=== PATIENT | female | born 1995 | race Hispanic/Latino ===

== ENCOUNTER 2017-12-19 09:09 | Inpatient (IN) | payer OTHER ==
[2017-12-19 09:23] VITALS: BMI 20.7
[2017-12-19] MEDS ORDERED: Morphine 2 mg/ml ISec IVP STA (09:46)
[2017-12-19] MEDS ORDERED: Iohexol 240 (50 ml) ONE (09:48)
--- NOTE | 2017-12-19 10:56 | ED PDOC ---
Arrival/HPI - General Chief Complaint: GI Problem Time Seen by Provider: 12/19/17 09:37 Historian: Patient, Partner - History of Present Illness Narrative History of Present Illness (Text): 12/19/17 09:40 A 22 year old female, whose past medical history includes ulcer colitis, hemorrhoids, and anemia, presents to the emergency department complaining of intermittent abdominal pain and bloody stool. Patient reports experiencing symptoms for few weeks. States stools are sometimes completely bloody, sometimes normal. Patient mentions experiencing fever few weeks ago prior to symptoms. Notes also experiencing dizziness, lightheadedness, nausea, lower abdominal pain, shortness of breath (mostly when walking), and bad odor to urine. Denies any vomiting, rhinorrhea, cough, or any other complaints at this time. PMD: Dr. Freeman GI: Dr. Juares Past Medical History - Provider Review Nursing Documentation Reviewed: Yes - Cardiac Hx Cardiac Disorders: No - Pulmonary Hx Respiratory Disorders: No - Neurological Hx Neurological Disorder: No - HEENT Hx HEENT Disorder: No - Renal Hx Renal Disorder: No - Endocrine/Metabolic Hx Endocrine Disorders: No - Hematological/Oncological Hx Blood Disorders: Yes Hx Anemia: Yes - Integumentary Hx Dermatological Disorder: No - Musculoskeletal/Rheumatological Hx Musculoskeletal Disorders: No - Gastrointestinal Hx Gastrointestinal Disorders: Yes Hx Colitis: Yes - Genitourinary/Gynecological Hx Genitourinary Disorders: No - Psychiatric Hx Psychophysiologic Disorder: No Hx Substance Use: No Family/Social History - Physician Review Nursing Documentation Reviewed: Yes Family/Social History: No Known Family HX Smoking Status: Never Smoked Hx Alcohol Use: Yes Frequency of alcohol use: Socially Hx Substance Use: No Allergies/Home Meds Allergies/Adverse Reactions: Allergies codeine Adverse Reaction (Verified 12/19/17 17:07) VOMITING Home Medications: Home Meds Medication Instructions Recorded Confirmed No Known Home Med 12/19/17 12/19/17 Review of Systems - Physician Review All systems were reviewed & negative as marked: Yes - Review of Systems ENT: absent: Rhinorrhea Respiratory: SOB (mostly when walking). absent: Cough Gastrointestinal: Abdominal Pain (intermittently), Stool Changes (bloody stool ( sometimes)), Nausea. absent: Vomiting Genitourinary Female: Other (bad odor to urine) Neurological: Dizziness Physical Exam Vital Signs Reviewed: Yes Vital Signs Temp Pulse Resp BP Pulse Ox 12/19/17 16:02 70 17 127/65 99 12/19/17 13:40 74 18 128/64 100 12/19/17 12:37 75 18 132/65 100 12/19/17 11:00 78 18 134/69 100 12/19/17 10:35 93 H 17 118/62 99 12/19/17 09:21 98.4 F 81 16 136/71 100 Temperature: Afebrile Blood Pressure: Normal Pulse: Regular Respiratory Rate: Normal Appearance: Positive for: Well-Appearing Pain Distress: None Mental Status: Positive for: Alert and Oriented X 3 - Systems Exam Head: Present: Atraumatic, Normocephalic Pupils: Present: PERRL Extroacular Muscles: Present: EOMI Conjunctiva: Present: Normal Mouth: Present: Moist Mucous Membranes Neck: Present: Normal Range of Motion Respiratory/Chest: Present: Clear to Auscultation, Good Air Exchange. No: Respiratory Distress, Accessory Muscle Use Cardiovascular: Present: Regular Rate and Rhythm, Normal S1, S2. No: Murmurs Abdomen: Present: Tenderness (left side of abdomen, more so upper than lower region) Rectal: Present: Hemorrhoids (external non-thrombus hemorrhoid), Other (brown stool, guaiac positive. Chaperoned by hBarat Wen.) Back: Present: Normal Inspection Upper Extremity: Present: Normal Inspection. No: Cyanosis, Edema Lower Extremity: Present: Normal Inspection. No: Edema Neurological: Present: GCS=15, CN II-XII Intact, Speech Normal Skin: Present: Pale Psychiatric: Present: Alert, Oriented x 3, Normal Insight, Normal Concentration Medical Decision Making ED Course and Treatment: 12/19/17 09:45 Impression: 22 year old female with intermittent abdominal pain and bloody stool. Physical exam shows tenderness to left abdomen (more so on upper than lower region); rectal exam, chaperoned by Bharat Wen, shows guaiac positive, brown stool, external non-thrombus hemorrhoid.. Differential Diagnosis included but are not limited to: Ulcer Colitis Exacerbation vs. Abscess Plan: -- Abd/Pelvis CT -- Labs -- Morphine -- Zofran -- Protonix -- Urinalysis -- Reassess and disposition Progress Notes: 12/19/2017 12:28 Abd/Pelvis CT IMPRESSION: Bilateral ovarian cysts are seen. There is a thick-walled enhancing rim on the the left which may represent a recent cyst rupture. There is minimal fluid in the cul-de-sac. Dictator: Avtar Kaye MD 12/19/17 14:[address] Joy and patient's GI doctor, Dr. Juares, who recommends patient be admitted for colonoscopy tomorrow. - Lab Interpretations Lab Results: 12/19/17 11:05 12/19/17 11:05 Lab Results 12/19/17 12:45: Blood Type Confirm A POSITIVE 12/19/17 11:05: Sodium 140, Potassium 4.2, Chloride 103, Carbon Dioxide 23, Anion Gap 18, BUN 13, Creatinine 0.7, Est GFR ( Amer) > 60, Est GFR (Non- Af Amer) > 60, Random Glucose 87, Calcium 9.6, Total Bilirubin 0.8, AST 24, ALT 32, Alkaline Phosphatase 96, Lactate Dehydrogenase 422, Total Creatine Kinase 56 , Troponin I < 0.01, Total Protein 8.3, Albumin 4.5, Globulin 3.8, Albumin/ Globulin Ratio 1.2, Lipase 113 12/19/17 11:05: Urine Color Yellow, Urine Appearance Clear, Urine pH 6.5, Ur Specific [place] 1.010, Urine Protein Negative, Urine Glucose (UA) Negative, Urine Ketones Negative, Urine Blood Negative, Urine Nitrate Negative, Urine Bilirubin Negative, Urine Urobilinogen 0.2, Ur Leukocyte Esterase Negative 12/19/17 11:05: PT 12.0, INR 1.04, APTT 22.7 L 12/19/17 11:05: WBC 7.7, RBC 4.43, Hgb 13.0, Hct 39.8, MCV 89.8, MCH 29.3, MCHC 32.7, RDW 12.3, Plt Count 354, MPV 8.9, Gran % 55.9, Lymph % (Auto) 24.5, [place] % (Auto) 11.3 H, Eos % (Auto) 7.5 H, Baso % (Auto) 0.8, Gran # 4.33, Lymph # ( Auto) 1.9, [place] # (Auto) 0.9 H, Eos # (Auto) 0.6, Baso # (Auto) 0.06 12/19/17 10:50: Blood Type A POSITIVE, Antibody Screen Negative, BBK History Checked No verified bt I have reviewed the lab results: Yes - RAD Interpretation Radiology Orders: 12/19/17 09:45 ABD PELVIS PO & IV CONTRAST [CT] Stat - Medication Orders Current Medication Orders: Sodium Chloride (Sodium Chloride 0.9%) 1,000 mls @ 150 mls/hr IV .Q6H40M [facility] Last Admin: 12/19/17 17:13 Dose: 150 mls/hr eMAR Start Stop Document 12/19/17 17:13 EP (Rec: 12/19/17 17:14 EP [id number] Intravenous Solution Start Date 12/19/17 Start Time 17:13 Metronidazole (Flagyl) 500 mg in 100 mls @ 100 mls/hr IVPB Q8 [facility]ANNE PRN Reason: Protocol Ceftriaxone Sodium (Rocephin 1 Gram Ivpb) 1 gm in 100 mls @ 100 mls/hr IVPB DAILY [facility] PRN Reason: Protocol Last Admin: 12/20/17 10:41 Dose: 100 mls/hr eMAR Start Stop Document 12/20/17 10:41 CV (Rec: 12/20/17 10:41 CV [id number] Intravenous Solution Start Date 12/20/17 Start Time 10:41 Sodium Chloride (Sodium Chloride 0.9%) 1,000 mls @ 100 mls/hr IV .Q10H [facility] Mesalamine (Rowasa Enema) 4 gm RC BID [facility] Mesalamine (Asacol Hd 800mg) 1,600 mg PO TID [facility] Ondansetron HCl (Zofran Inj) 4 mg IVP Q4H PRN PRN Reason: Nausea/Vomiting Pantoprazole Sodium (Protonix Inj) 40 mg IVP DAILY [facility] Last Admin: 12/20/17 10:42 Dose: 40 mg IVP Administration Document 12/20/17 10:42 CV (Rec: 12/20/17 10:42 CV [facility] [id number] Charges for Administration # of IVP Administrations 1 Discontinued Medications Hydromorphone HCl (Dilaudid) 0.5 mg IVP Q4H PRN PRN Reason: Pain, Mild (1-3) Morphine Sulfate (Morphine) 2 mg IVP STAT STA Stop: 12/19/17 09:47 Last Admin: 12/19/17 10:40 Dose: 2 mg MAR Pain Assessment Document 12/19/17 10:40 SF (Rec: 12/19/17 10:51 SF [email or web address]) Pain Reassessment Is this a pain reassessment? Yes Sleep Is patient sleeping during reassessment? No IVP Administration Document 12/19/17 10:40 SF (Rec: 12/19/17 10:51 SF [email or web address]) Charges for Administration # of IVP Administrations 1 Ondansetron HCl (Zofran Inj) 4 mg IVP STAT STA Stop: 12/19/17 09:45 Last Admin: 12/19/17 10:40 Dose: 4 mg IVP Administration Document 12/19/17 10:40 SF (Rec: 12/19/17 10:51 SF [email or web address]) Charges for Administration # of IVP Administrations 1 Pantoprazole Sodium (Protonix Inj) 80 mg IVP STAT STA Stop: 12/19/17 09:47 Last Admin: 12/19/17 10:40 Dose: 80 mg IVP Administration Document 12/19/17 10:40 SF (Rec: 12/19/17 10:52 SF [email or web address]) Charges for Administration # of IVP Administrations 1 Pneumococcal Polyvalent Vaccine (Pneumovax 23 Vaccine) 0.5 ml IM .ONCE ONE Stop: 12/19/17 18:26 Polyethylene Glycol/Electrolytes (Golytely) 4,000 ml PO ONCE ONE Stop: 12/19/17 16:18 Last Admin: 12/19/17 17:14 Dose: 4,000 ml - Scribe Statement The provider has reviewed the documentation as recorded by the Bharat Lopez Provider Scribe Attestation: All medical record entries made by the Jaclynibmisti were at my direction and personally dictated by me. I have reviewed the chart and agree that the record accurately reflects my personal performance of the history, physical exam, medical decision making, and the department course for this patient. I have also personally directed, reviewed, and agree with the discharge instructions and disposition. Disposition/Present on Arrival - Present on Arrival Any Indicators Present on Arrival: No History of DVT/PE: No History of Uncontrolled Diabetes: No Urinary Catheter: No History of Decub. Ulcer: No History Surgical Site Infection Following: None - Disposition Have Diagnosis and Disposition been Completed?: Yes Diagnosis: Ulcerative colitis Disposition: HOSPITALIZED Disposition Time: 14:32 Patient Plan: Admission Condition: FAIR
[2017-12-19 11:21] LABS: BASO # 0.06 K/mm3 (0.0-2.0); BASO % 0.8 % (0.0-3.0); EOS # 0.6 (0.0-0.7); EOS % 7.5 % (1.5-5.0); GRAN # 4.33 (1.4-6.5); GRAN % 55.9 % (50.0-68.0); LYMPH # 1.9 (1.2-3.4); LYMPH % 24.5 % (22.0-35.0); MEAN CELL VOLUME 89.8 fl (80.0-105.0); MEAN CORPUSCULAR HEMOGLOBIN 29.3 pg (25.0-35.0); MEAN CORPUSCULAR HGB CONC 32.7 g/dl (31.0-37.0); MEAN PLATELET VOLUME 8.9 fl (7.0-11.0); MONO # 0.9 (0.1-0.6); MONO % 11.3 % (1.0-6.0); RBC 4.43 10^6/uL (3.5-6.1); RED CELL DISTRIBUTION WIDTH 12.3 % (11.5-14.5); WHITE BLOOD COUNT 7.7 10^3/ul (4.5-11.0)
[2017-12-19 11:25] LABS: PH,URINE 6.5 (4.7-8.0); URINE BILIRUBIN NEGATIVE (NEGATIVE); URINE BLOOD NEGATIVE (NEGATIVE); URINE GLUCOSE (UA) NEGATIVE (NEGATIVE); URINE LEUKOCYTE ESTERASE NEGATIVE Leu/uL (NEGATIVE); URINE NITRATE NEGATIVE (NEGATIVE); URINE PROTEIN NEGATIVE mg/dL (<30 mg/dL); URINE UROBILINOGEN 0.2 E.U./dL (<1 E.U./dL)
[2017-12-19 11:26] LABS: URINE APPEARANCE CLEAR (CLEAR); URINE COLOR YELLOW (YELLOW)
[2017-12-19 11:35] LABS: ALB/GLOB RATIO 1.2 (1.1-1.8); ALBUMIN 4.5 g/dL (3.0-4.8); ALT/SGPT 32 U/L (7-56); AST/SGOT 24 U/L (14-36); BLOOD UREA NITROGEN 13 mg/dL (7-21); CALCIUM 9.6 mg/dL (8.4-10.5); GFR AFRICAN-AMERICAN > 60; GFR NON-AFRICAN AMERICAN > 60; INR 1.04 (0.93-1.08); LIPASE 113 U/L (23-300); PARTIAL THROMBOPLASTIN TIME 22.7 Seconds (25.1-36.5)
[2017-12-19 11:46] LABS: TROPONIN I < 0.01 ng/mL
[2017-12-19] MEDS ORDERED: Iohexol 350 MG/100 ML VIAL ONE (11:51)
--- NOTE | 2017-12-19 12:29 | CT ---
PROCEDURE: CT Abdomen and Pelvis with contrast HISTORY: h/o ulc colitis r/o abscess COMPARISON: None. TECHNIQUE: Contrast dose: 100 cc of Omni 350 Radiation dose: Total exam DLP = 265 mGy-cm. This CT exam was performed using one or more of the following dose reduction techniques: Automated exposure control, adjustment of the mA and/or kV according to patient size, and/or use of iterative reconstruction technique. FINDINGS: LOWER THORAX: Unremarkable. LIVER: Unremarkable. No gross lesion or ductal dilatation. GALLBLADDER AND BILE DUCTS: Unremarkable. PANCREAS: Unremarkable. No gross lesion or ductal dilatation. SPLEEN: Unremarkable. ADRENALS: Unremarkable. No mass. KIDNEYS AND URETERS: Unremarkable. No hydronephrosis. No solid mass. VASCULATURE: Unremarkable. No aortic aneurysm. BOWEL: Unremarkable. No obstruction. No gross mural thickening. APPENDIX: Normal appendix. PERITONEUM: Unremarkable. No free fluid. No free air. LYMPH NODES: Unremarkable. No enlarged lymph nodes. BLADDER: Unremarkable. REPRODUCTIVE: Bilateral ovarian cysts are seen. There is a thick-walled enhancing rim on the left which may represent a recent cyst rupture. There is minimal fluid in the cul-de-sac BONES: No acute fracture. OTHER FINDINGS: None. IMPRESSION: Bilateral ovarian cysts are seen. There is a thick-walled enhancing rim on the left which may represent a recent cyst rupture. There is minimal fluid in the cul-de-sac
[2017-12-19] MEDS ORDERED: HYDROmorphone 0.5 mg/0.5 ml ISec IVP PRN (15:24)
--- NOTE | 2017-12-19 16:13 | CP.PCM.CON ---
<Dania Freeman - Last Filed: 12/19/17 16:20> History of Present Illness - History of Present Illness History of Present Illness: Gi consult note for Dr Albright Reason for consult: colitis Patient is a 22 y/o female with PMHx of ulcerative colitis diagnosed based on colonoscopy back in 2008 presenting with worsening in bloody diarrhea, and abdominal pain. GI is being consulted for possible ulcerative colitis flare. Patient states since diagnosed she has been on mesalamine po and suppository with resolution in bloody bowel movement, but continued to have loose stool. Patient states she stopped the mesalamine 6 months ago. Patient currently only takes probiotics. Had colonoscopy 3 times after diagnoses with last one being in 2013 with unremarkable result. Patient moved from [place] and started seeing Dr Gonsalez recently due to colitis flare. In addition, patient was diagnosed with C difficile twice back in 2011 and 2013 and was treated with po flagyl and vancomycin ( 4x per day for a month). Patient decided to come to the ED because for the past couple days patient has been having bloody bowel movement , feeling more fatigued and has been nauseous. Patient states she has been having fever on/off upward to 101-102. Currently patient denies nausea, or vomiting. Have not had diarrhea since being in the ED. Denies cough or runny nose. PMHx: ulcerative colitis, C difficile PSHx: EGD and colonoscopy in 2008, 2011 and 2013 in [place] FMHx: mom and dad are alive and healthy Social: Denies tobacco, alcohol or illicit drug use. Home meds: probiotic, iron Allergy: codeine Review of Systems - Review of Systems All systems: reviewed and no additional remarkable complaints except Review of Systems: 12 point ROS reviewed, all negative except as per HPI. Past Patient History - Past Social History Smoking Status: Never Smoked Alcohol: None Drugs: Denies Home Situation {Lives}: With Family - CARDIAC Hx Cardiac Disorders: No - PULMONARY Hx Respiratory Disorders: No - NEUROLOGICAL Hx Neurological Disorder: No - HEENT Hx HEENT Problems: No - RENAL Hx Chronic Kidney Disease: No - ENDOCRINE/METABOLIC Hx Endocrine Disorders: No - HEMATOLOGICAL/ONCOLOGICAL Hx Blood Disorders: Yes Hx Anemia: Yes - INTEGUMENTARY Hx Dermatological Problems: No - MUSCULOSKELETAL/RHEUMATOLOGICAL Hx Musculoskeletal Disorders: No - GASTROINTESTINAL Hx Gastrointestinal Disorders: Yes Hx Colitis: Yes - GENITOURINARY/GYNECOLOGICAL Hx Genitourinary Disorders: No - PSYCHIATRIC Hx Psychophysiologic Disorder: No Hx Substance Use: No - SURGICAL HISTORY Hx Surgeries: No Meds Allergies/Adverse Reactions: Allergies Allergy/AdvReac Type Severity Reaction Status Date / Time codeine AdvReac VOMITING Verified 12/19/17 17:07 - Medications Medications: Current Medications Hydromorphone HCl (Dilaudid) 0.5 mg IVP Q4H PRN PRN Reason: Pain, Mild (1-3) Pantoprazole Sodium (Protonix Inj) 40 mg IVP DAILY [facility] Physical Exam - Constitutional Appears: No Acute Distress - Head Exam Head Exam: ATRAUMATIC, NORMAL INSPECTION, NORMOCEPHALIC - Eye Exam Eye Exam: EOMI, Normal appearance, PERRL. absent: Scleral icterus Pupil Exam: NORMAL ACCOMODATION - ENT Exam ENT Exam: Mucous Membranes Moist - Neck Exam Neck exam: Positive for: Normal Inspection. Negative for: Lymphadenopathy - Respiratory Exam Respiratory Exam: Clear to Auscultation Bilateral, NORMAL BREATHING PATTERN. absent: Rales, Rhonchi, Wheezes, Respiratory Distress, Stridor - Cardiovascular Exam Cardiovascular Exam: REGULAR RHYTHM, RRR, +S1, +S2. absent: Gallop, JVD, Rubs, Systolic Murmur - GI/Abdominal Exam GI & Abdominal Exam: Distended (left lower quadrant.), Normal Bowel Sounds, Soft. absent: Firm, Guarding, Organomegaly, Rebound, Rigid, Tenderness - Extremities Exam Extremities exam: Positive for: normal inspection. Negative for: pedal edema - Back Exam Back exam: NORMAL INSPECTION - Neurological Exam Neurological exam: Alert, Oriented x3 - Psychiatric Exam Psychiatric exam: Normal Affect, Normal Mood - Skin Skin Exam: Dry, Intact, Normal Color, Warm Results - Vital Signs Recent Vital Signs: Last Vital Signs Temp 98.4 F 12/19/17 09:21 Pulse 70 12/19/17 16:02 Resp 17 12/19/17 16:02 BP 127/65 12/19/17 16:02 Pulse Ox 99 12/19/17 16:02 - Labs Result Diagrams: 12/19/17 11:05 12/19/17 11:05 Assessment & Plan - Assessment and Plan (Free Text) Assessment: Patient is a 22 y/o female with PMHx of ulcerative colitis diagnosed and c diff colitis s/p treatment 2x presenting with worsening in abdominal pain, bloody bowel movement and loose stool, along with fever. CT with ovarian cysts. - Likely ulcerative colitis flare, r/o c diff colitis Plan: - NPO past midnight - Gi prep for colonoscopy tomorrow - IV hydration - anti emetics prn - Stool c diff for toxin and antigen testing - stool culture. Patient seen, examined and case discussed with Dr Albright. - Date & Time Date: 12/19/17 Time: 16:10 <Bernard Albright - Last Filed: 12/19/17 18:45> Meds - Medications Medications: Current Medications Hydromorphone HCl (Dilaudid) 0.5 mg IVP Q4H PRN PRN Reason: Pain, Mild (1-3) Sodium Chloride (Sodium Chloride 0.9%) 1,000 mls @ 150 mls/hr IV .Q6H40M [facility] Last Admin: 12/19/17 17:13 Dose: 150 mls/hr Ondansetron HCl (Zofran Inj) 4 mg IVP Q4H PRN PRN Reason: Nausea/Vomiting Pantoprazole Sodium (Protonix Inj) 40 mg IVP DAILY [facility] Results - Vital Signs Recent Vital Signs: Last Vital Signs Temp 98.4 F 12/19/17 18:04 Pulse 70 12/19/17 18:04 Resp 17 12/19/17 18:04 BP 127/65 12/19/17 18:04 Pulse Ox 99 12/19/17 16:02 - Labs Result Diagrams: 12/19/17 11:05 12/19/17 11:05 Attending/Attestation - Attestation I have personally seen and examined this patient.: Yes I have fully participated in the care of the patient.: Yes I have reviewed all pertinent clinical information: Yes Notes (Text): 12/19/17 18:44 22 year old female with h/o UC admitted with abdominal pain and bloody diarrhea. 1. Ulcerative colitis -Plan: -colonoscopy tomorrow for further eval -prep tonight, npo after mn -send stool for cultures/C.diff/O&P -IV hydration
[2017-12-19] MEDS ORDERED: Peg-Electrolyte Oral Soln 4L (Golytely) PO ONE (16:17)
[2017-12-19] MEDS ORDERED: Sodium Chloride 0.9% 1,000 ML IV SCH (16:30)
[2017-12-19] MEDS ORDERED: Influenza Vaccine 60 mcg/0.5 mL SYR (4YR UP) IM ONE (18:25)
[2017-12-19] MEDS ORDERED: Pneumococcal 23-Valent Vaccine IM ONE (18:25)
--- NOTE | 2017-12-20 05:14 | HP ---
CHIEF COMPLAINT: Abdominal pain, feverish feeling, blood in the stool. HISTORY OF PRESENT ILLNESS: Ms. Kelly Willson is a 22-year-old female with past medical history of ulcerative colitis, hemorrhoids, anemia, came to the Emergency Department complaining of intermittent abdominal pain and bloody stool. The patient reports the pain and symptoms present for a few weeks. The patient's stools are sometimes completely bloody and sometimes normal. The patient manifests experience of fever a few weeks ago prior to the symptoms, noticed fatigue, dizziness, lightheadedness, nausea, lower abdominal pain, shortness of breath mostly when walking and bad odor in the urine. Denies nausea, vomiting, rhinorrhea, cough. PAST MEDICAL HISTORY: As above. History of ulcerative colitis, hemorrhoids, anemia, colitis. FAMILY HISTORY: Father and mother, noncontributory. HABITS: Never smoked. No drug, no ethanol. ALLERGIES: WITH CODEINE. HOME MEDICATIONS: Unknown. REVIEW OF SYSTEMS: The patient seen and examined on the bedside in her room, drinking , still has the abdominal pain. No rhinorrhea. Shortness of breath when walking. No coughing. Abdominal pain is intermittent. Stool is bloody. No nausea or vomiting now. Bad odor of the urine. Dizziness. PHYSICAL EXAMINATION: VITAL SIGNS: Temperature 98.4, pulse 81, respiratory rate 16, blood pressure 138/71, pulse oximetry is 100. HEENT: Head is normocephalic and atraumatic. Eyes: PERRLA. Extraocular muscles are intact. Conjunctivae are clear. Nose is patent. Mucous membranes are moist. NECK: Supple. No carotid bruits, JVD or thyromegaly. CHEST: Bilaterally symmetrical. HEART: S1 and S2 positive. LUNGS: Clear to auscultation. ABDOMEN: Soft. Bowel sounds present. No organomegaly. EXTREMITIES: No edema. No cyanosis. NEUROLOGIC: The patient is awake and alert. Moving all four extremities. No focal deficits. LABORATORY DATA: White blood cells 7.7, hemoglobin 13.0, hematocrit 39.8, platelets 354. Sodium 140, potassium 4.2, BUN 13, creatinine 0.7, glucose 87. ASSESSMENT AND PLAN: History of colitis, hemorrhoids, anemia, history of Clostridium difficile toxin colitis, ulcerative colitis was diagnosed with colonoscopy back in 2008, came with worsening blood in the diarrhea, rule out ulcerative colitis flare up. As per patient, the patient is on mesalamine p.o. and suppositories with resolution in bloody bowel movement, but continues to have loose stool. Patient was told to stop mesalamine six months ago. Now, patient is only taking probiotic, had colonoscopy three times after diagnosis with last one in 2013, which was unremarkable. Patient moved to [place], started seeing Dr. Juares recently due to colitis flare up, seen by Dr. Bernard Albright. Patient is going for colonoscopy tomorrow, prep patient tonight, n.p.o. after midnight. Send the stool for culture, Clostridium difficile, ova and parasite, and give intravenous hydration. We will call Infectious Disease consult also for feverish feeling with repeat labs. Urinalysis is within normal limits, but as per patient, there is bad smell in the urine. Electrolytes are within normal limits. No anemia. Gastrointestinal and deep vein thrombosis prophylaxis. Repeat albs. We will follow up. Mildred Joy MD
[2017-12-20 07:14] LABS: HEMOGLOBIN 10.3 g/dL (12.0-16.0); MEAN CORPUSCULAR HGB CONC 30.7 g/dl (31.0-37.0); MEAN PLATELET VOLUME 8.5 fl (7.0-11.0); RBC 3.68 10^6/uL (3.5-6.1); RED CELL DISTRIBUTION WIDTH 12.4 % (11.5-14.5); WHITE BLOOD COUNT 5.4 10^3/ul (4.5-11.0)
[2017-12-20 07:23] LABS: IRON 56 ug/dL (45-180)
[2017-12-20 07:31] LABS: ALB/GLOB RATIO 1.1 (1.1-1.8); ALBUMIN 3.7 g/dL (3.0-4.8); ALT/SGPT 23 U/L (7-56); AST/SGOT 20 U/L (14-36); BLOOD UREA NITROGEN 6 mg/dL (7-21); CALCIUM 8.4 mg/dL (8.4-10.5); GFR AFRICAN-AMERICAN > 60; GFR NON-AFRICAN AMERICAN > 60; HDL CHOLESTEROL 39 mg/dL (29-60)
[2017-12-20 07:33] LABS: % IRON SATURATION 17 % (20-55); TOTAL IRON BINDING CAPACITY 333 ug/dL (265-497)
[2017-12-20 07:34] LABS: LDL CHOLESTEROL 61 mg/dL (0-129)
[2017-12-20] MEDS: cefTRIAXone 1 gm 1 GM/100 ML BAG IVPB SCH (10:41)
[2017-12-20] MEDS ORDERED: Midazolam 2 MG/2 ML VIAL ONE (12:09)
[2017-12-20] MEDS ORDERED: Propofol 10 mg/ml Inj (20 ML) ONE (12:09)
[2017-12-20] MEDS ORDERED: Sodium Chloride 0.9% 1,000 ML IV SCH (12:15)
[2017-12-20] MEDS: Mesalamine 800 mg DR Tab PO SCH ×2 (14:55→18:50)
[2017-12-20] MEDS: metroNIDAZOLE IV 500 mg/100 ml 500 MG/100 ML BAG IVPB SCH ×2 (14:55→21:37)
[2017-12-20 17:01] VITALS: RESP 18
--- NOTE | 2017-12-20 17:55 | CP.PCM.PCO ---
Physician Communication Note - Physician Communication Note Physician Communication Note: went for colonoscopy, started abx, will see pt tomorrow
--- NOTE | 2017-12-20 22:03 | PN ---
DATE: SUBJECTIVE: The patient is seen and examined on the bedside, looking comfortable. Went for colonoscopy by Dr. Albright. No fever. No chills. No nausea, vomiting, diarrhea. No hematuria. No hematochezia. No swelling of the leg. No chest pain. No palpitation. No headache. No dizziness. PHYSICAL EXAMINATION: VITAL SIGNS: Temperature 97.6, pulse 91, blood pressure 105/63, respiratory rate 18. HEENT: Head normocephalic, atraumatic. Eyes PERRLA. Extraocular muscles intact. Conjunctivae clear. Nose patent. NECK: Supple. No carotid bruit. No JVD or thyromegaly. CHEST: Bilaterally symmetrical. HEART: S1 and S2 positive. LUNGS: Clear to auscultation. ABDOMEN: Soft. Bowel sounds positive. No organomegaly. EXTREMITIES: No edema. No cyanosis. NEUROLOGICAL: The patient is awake and alert. Moving all 4 extremities. No focal deficits. LABORATORY DATA: White blood cells 5.4, hemoglobin 10.3, hematocrit 33.5, platelets 285. Sodium 143, potassium 3.9, BUN 6, creatinine 0.6, glucose 89, iron saturation 17, TSH 5.44. MEDICATIONS: Asacol, Flagyl, Protonix, Rocephin, mesalamine NS, Zofran. ASSESSMENT AND PLAN: Ms. Kelly Willson, 22-year-old female with anemia, iron deficiency, hypothyroidism, history obstructive colitis, Clostridium difficile toxin colitis, came with gastrointestinal bleeding, went for colonoscopy, history of abdominal pain and bloody diarrhea. Rule out ulcerative colitis flare-up. The patient is also having feverish feeling. Infectious Disease consult called. Started on antibiotics. We also has limited colonoscopy with biopsy. Waiting for the findings. We will continue current treatment. Repeat labs. We will follow up. Mildred Joy MD
[2017-12-21] MEDS: metroNIDAZOLE IV 500 mg/100 ml 500 MG/100 ML BAG IVPB SCH (06:12)
[2017-12-21 07:10] LABS: HEMOGLOBIN 10.4 g/dL (12.0-16.0); MEAN CELL VOLUME 90.2 fl (80.0-105.0); MEAN CORPUSCULAR HEMOGLOBIN 28.4 pg (25.0-35.0); MEAN CORPUSCULAR HGB CONC 31.5 g/dl (31.0-37.0); MEAN PLATELET VOLUME 8.6 fl (7.0-11.0); RBC 3.66 10^6/uL (3.5-6.1); RED CELL DISTRIBUTION WIDTH 12.3 % (11.5-14.5); WHITE BLOOD COUNT 6.1 10^3/ul (4.5-11.0)
[2017-12-21 07:41] LABS: BLOOD UREA NITROGEN 3 mg/dL (7-21); CALCIUM 8.3 mg/dL (8.4-10.5); GFR AFRICAN-AMERICAN > 60; GFR NON-AFRICAN AMERICAN > 60
[2017-12-21 09:24] VITALS: BP 102/56; PULSE 81; TEMP 98.5; O2SAT 99
[2017-12-21] MEDS: Mesalamine 800 mg DR Tab PO SCH (10:31)
[2017-12-21] MEDS: cefTRIAXone 1 gm 1 GM/100 ML BAG IVPB SCH (10:32)
--- NOTE | 2017-12-21 12:12 | CP.PCM.PN ---
<Vitaliy Vázquez - Last Filed: 12/21/17 12:12> Subjective - Date & Time of Evaluation Date of Evaluation: 12/21/17 Time of Evaluation: 08:00 - Subjective Subjective: PGY4 GI Follow-up Pt seen and examined bedside No complaints Still has diarrhea but improving Tolerating diet ROS: 10 point ROS conducted, neg other than above = Objective - Vital Signs/Intake and Output Vital Signs (last 24 hours): Temp Pulse Resp BP Pulse Ox 98.5 F 81 18 102/56 L 99 12/21/17 08:00 12/21/17 08:00 12/21/17 08:00 12/21/17 08:00 12/21/17 08:00 Intake and Output: 12/21/17 12/21/17 06:59 18:59 Intake Total 840 Balance 840 - Medications Medications: Current Medications Metronidazole (Flagyl) 500 mg in 100 mls @ 100 mls/hr IVPB Q8 [facility] PRN Reason: Protocol Last Admin: 12/21/17 06:12 Dose: 100 mls/hr Ceftriaxone Sodium (Rocephin 1 Gram Ivpb) 1 gm in 100 mls @ 100 mls/hr IVPB DAILY [facility] PRN Reason: Protocol Last Admin: 12/21/17 10:32 Dose: 100 mls/hr Sodium Chloride (Sodium Chloride 0.9%) 1,000 mls @ 100 mls/hr IV .Q10H [facility] Last Admin: 12/20/17 21:36 Dose: 100 mls/hr Mesalamine (Rowasa Enema) 4 gm RC BID [facility] Last Admin: 12/21/17 10:32 Dose: 4 gm Mesalamine (Asacol Hd 800mg) 1,600 mg PO TID [facility] Last Admin: 12/21/17 10:31 Dose: 1,600 mg Ondansetron HCl (Zofran Inj) 4 mg IVP Q4H PRN PRN Reason: Nausea/Vomiting Pantoprazole Sodium (Protonix Inj) 40 mg IVP DAILY [facility] Last Admin: 12/21/17 10:32 Dose: 40 mg - Labs Labs: 12/21/17 06:30 12/21/17 06:30 PT 12.0 SECONDS (9.4-12.5) 12/19/17 11:05 INR 1.04 (0.93-1.08) 12/19/17 11:05 APTT 22.7 Seconds (25.1-36.5) L 12/19/17 11:05 - Constitutional Appears: Well, No Acute Distress - Head Exam Head Exam: ATRAUMATIC, NORMOCEPHALIC - Eye Exam Eye Exam: Normal appearance - Respiratory Exam Respiratory Exam: Clear to Ausculation Bilateral, NORMAL BREATHING PATTERN. absent: Rales, Rhonchi, Wheezes - Cardiovascular Exam Cardiovascular Exam: REGULAR RHYTHM, +S1, +S2 - GI/Abdominal Exam GI & Abdominal Exam: Soft, Normal Bowel Sounds. absent: Rigid, Tenderness, Organomegaly - Extremities Exam Extremities Exam: absent: Joint Swelling, Pedal Edema - Neurological Exam Neurological Exam: Alert, Awake, Oriented x3 - Psychiatric Exam Psychiatric exam: Normal Affect, Normal Mood - Skin Skin Exam: Dry, Intact, Normal Color, Warm Assessment and Plan - Assessment and Plan (Free Text) Assessment: Patient is a 22 y/o female with PMHx of ulcerative colitis diagnosed and c diff colitis s/p treatment 2x presenting with worsening in abdominal pain, bloody bowel movement and loose stool, along with fever. CT with ovarian cysts. s/p colonoscopy which revealed mucosal changes and ulceration from rectum to hepatic flexure, s/p biopsies and cultures UC flare, r/o infectous etiology Plan: - advance diet as tolerated -need stool culture and c.diff -working on outpt medications -continue orak and rectal mesalaine -may evetually need biologics -follow-up with Dr. Juares as oupt -okay to d/c from GI standpoint. D/W Dr. Gibson <Brad Gibson Y - Last Filed: 12/21/17 12:46> Objective - Vital Signs/Intake and Output Vital Signs (last 24 hours): Temp Pulse Resp BP Pulse Ox 98.5 F 81 18 102/56 L 99 12/21/17 08:00 12/21/17 08:00 12/21/17 08:00 12/21/17 08:00 12/21/17 08:00 Intake and Output: 12/21/17 12/21/17 06:59 18:59 Intake Total 840 Balance 840 - Medications Medications: Current Medications Metronidazole (Flagyl) 500 mg in 100 mls @ 100 mls/hr IVPB Q8 RYANNE PRN Reason: Protocol Last Admin: 12/21/17 06:12 Dose: 100 mls/hr Ceftriaxone Sodium (Rocephin 1 Gram Ivpb) 1 gm in 100 mls @ 100 mls/hr IVPB DAILY [facility] PRN Reason: Protocol Last Admin: 12/21/17 10:32 Dose: 100 mls/hr Sodium Chloride (Sodium Chloride 0.9%) 1,000 mls @ 100 mls/hr IV .Q10H [facility] Last Admin: 12/20/17 21:36 Dose: 100 mls/hr Mesalamine (Rowasa Enema) 4 gm RC BID [facility] Last Admin: 12/21/17 10:32 Dose: 4 gm Mesalamine (Asacol Hd 800mg) 1,600 mg PO TID [facility] Last Admin: 12/21/17 10:31 Dose: 1,600 mg Ondansetron HCl (Zofran Inj) 4 mg IVP Q4H PRN PRN Reason: Nausea/Vomiting Pantoprazole Sodium (Protonix Inj) 40 mg IVP DAILY [facility] Last Admin: 12/21/17 10:32 Dose: 40 mg - Labs Labs: 12/21/17 06:30 12/21/17 06:30 PT 12.0 SECONDS (9.4-12.5) 12/19/17 11:05 INR 1.04 (0.93-1.08) 12/19/17 11:05 APTT 22.7 Seconds (25.1-36.5) L 12/19/17 11:05 Attending/Attestation - Attestation I have personally seen and examined this patient.: Yes I have fully participated in the care of the patient.: Yes I have reviewed all pertinent clinical information, including history, physical exam and plan: Yes Notes (Text): 12/21/17 12:39 I have seen and examined patient with GI fellow and medical scheduler. No acute events overnight, she is seen sitting in chair, appears comfortable. She denies abdominal pain, nausea, vomiting, fever/chills. She had two loose watery bowel movements overnight and one this morning. She otherwise is tolerating PO diet without difficulty. Review of vitals from today are normal. Ulcerative colitis History of c-difficile colitis Abdominal pain, rectal bleeding - s/p colonoscopy showing inflammation from rectum to hepatic flexure - normal appearing ileum - Diet as tolerated - Continue with oral and topical mesalamine therapy - Follow up biopsies from colonoscopy - Awaiting stool studies (specifically c-difficile given prior history and ongoing watery diarrhea) - Patient has outpatient appointment with Dr. Juares scheduled for next week, from GI perspective ok to discharge home with subsequent follow up. Patient has tentative plans to move to [place] in March, therefore specific outpatient regimen will need to be adjusted accordingly.
--- NOTE | 2017-12-21 13:40 | CP.PCM.DIS ---
<XavierVane Purvi - Last Filed: 12/21/17 14:46> Provider - Provider Date of Admission: 12/19/17 14:32 Attending physician: Mildred Joy MD Primary care physician: Mildred Joy MD Consults: GI - Dr. Juares ID - Dr. Jain Time Spent in preparation of Discharge (in minutes): 40 Diagnosis - Discharge Diagnosis (1) Anemia Status: Acute Hospital Course - Lab Results Lab Results: Micro Results 12/20/17 13:15 Stool C. difficile Antigen & Toxin A,B (M - Final Most Recent Lab Values WBC 6.1 10^3/ul (4.5-11.0) 12/21/17 06:30 RBC 3.66 10^6/uL (3.5-6.1) 12/21/17 06:30 Hgb 10.4 g/dL (12.0-16.0) L 12/21/17 06:30 Hct 33.0 % (36.0-48.0) L 12/21/17 06:30 MCV 90.2 fl (80.0-105.0) 12/21/17 06:30 MCH 28.4 pg (25.0-35.0) 12/21/17 06:30 MCHC 31.5 g/dl (31.0-37.0) 12/21/17 06:30 RDW 12.3 % (11.5-14.5) 12/21/17 06:30 Plt Count 270 10^3/uL (120.0-450.0) 12/21/17 06:30 MPV 8.6 fl (7.0-11.0) 12/21/17 06:30 Gran % 55.9 % (50.0-68.0) 12/19/17 11:05 Lymph % (Auto) 24.5 % (22.0-35.0) 12/19/17 11:05 [place] % (Auto) 11.3 % (1.0-6.0) H 12/19/17 11:05 Eos % (Auto) 7.5 % (1.5-5.0) H 12/19/17 11:05 Baso % (Auto) 0.8 % (0.0-3.0) 12/19/17 11:05 Gran # 4.33 (1.4-6.5) 12/19/17 11:05 Lymph # (Auto) 1.9 (1.2-3.4) 12/19/17 11:05 [place] # (Auto) 0.9 (0.1-0.6) H 12/19/17 11:05 Eos # (Auto) 0.6 (0.0-0.7) 12/19/17 11:05 Baso # (Auto) 0.06 K/mm3 (0.0-2.0) 12/19/17 11:05 PT 12.0 SECONDS (9.4-12.5) 12/19/17 11:05 INR 1.04 (0.93-1.08) 12/19/17 11:05 APTT 22.7 Seconds (25.1-36.5) L 12/19/17 11:05 Sodium 141 mmol/L (132-148) 12/21/17 06:30 Potassium 3.6 mmol/L (3.6-5.0) 12/21/17 06:30 Chloride 110 mmol/L (98-107) H 12/21/17 06:30 Carbon Dioxide 22 mmol/L (21-33) 12/21/17 06:30 Anion Gap 13 (10-20) 12/21/17 06:30 BUN 3 mg/dL (7-21) L 12/21/17 06:30 Creatinine 0.7 mg/dl (0.7-1.2) 12/21/17 06:30 Est GFR ( Amer) > 60 12/21/17 06:30 Est GFR (Non-Af Amer) > 60 12/21/17 06:30 Random Glucose 85 mg/dL (70-110) 12/21/17 06:30 Hemoglobin A1c 5.2 % (4.2-6.5) 12/20/17 06:30 Calcium 8.3 mg/dL (8.4-10.5) L 12/21/17 06:30 Iron 56 ug/dL (45-180) 12/20/17 06:30 TIBC 333 ug/dL (265-497) 12/20/17 06:30 % Saturation 17 % (20-55) L 12/20/17 06:30 Total Bilirubin 0.8 mg/dL (0.2-1.3) 12/20/17 06:30 AST 20 U/L (14-36) 12/20/17 06:30 ALT 23 U/L (7-56) 12/20/17 06:30 Alkaline Phosphatase 75 U/L (38-126) 12/20/17 06:30 Lactate Dehydrogenase 422 U/L (333-699) 12/19/17 11:05 Total Creatine Kinase 56 U/L (35-230) 12/19/17 11:05 Troponin I < 0.01 ng/mL 12/19/17 11:05 Total Protein 7.0 g/dL (5.8-8.3) 12/20/17 06:30 Albumin 3.7 g/dL (3.0-4.8) 12/20/17 06:30 Globulin 3.4 gm/dL 12/20/17 06:30 Albumin/Globulin Ratio 1.1 (1.1-1.8) 12/20/17 06:30 Triglycerides 58 mg/dL (35-160) 12/20/17 06:30 Cholesterol 125 mg/dL (130-200) L 12/20/17 06:30 LDL Cholesterol Direct 61 mg/dL (0-129) 12/20/17 06:30 HDL Cholesterol 39 mg/dL (29-60) 12/20/17 06:30 Lipase 113 U/L (23-300) 12/19/17 11:05 Vitamin B12 498 pg/mL (239-931) 12/20/17 06:30 Folate 7.0 ng/mL 12/20/17 06:30 TSH 3rd Generation 5.44 mIU/mL (0.46-4.68) H 12/20/17 06:30 Urine Color Yellow (YELLOW) 12/19/17 11:05 Urine Appearance Clear (CLEAR) 12/19/17 11:05 Urine pH 6.5 (4.7-8.0) 12/19/17 11:05 Ur Specific [place] 1.010 (1.005-1.035) 12/19/17 11:05 Urine Protein Negative mg/dL (<30 mg/dL) 12/19/17 11:05 Urine Glucose (UA) Negative mg/dL (NEGATIVE) 12/19/17 11:05 Urine Ketones Negative mg/dL (NEGATIVE) 12/19/17 11:05 Urine Blood Negative (NEGATIVE) 12/19/17 11:05 Urine Nitrate Negative (NEGATIVE) 12/19/17 11:05 Urine Bilirubin Negative (NEGATIVE) 12/19/17 11:05 Urine Urobilinogen 0.2 E.U./dL (<1 E.U./dL) 12/19/17 11:05 Ur Leukocyte Esterase Negative Annabel/uL (NEGATIVE) 12/19/17 11:05 Blood Type A POSITIVE 12/19/17 10:50 Blood Type Confirm A POSITIVE 12/19/17 12:45 Antibody Screen Negative 12/19/17 10:50 BBK History Checked No verified bt 12/19/17 10:50 - Hospital Course Hospital Course: 22 yr female w/ history of ulcerative colitis, hemorrhoids, and anemia. Pt was [place] [facility] episode of bloody stools. Pt was followed by GI Dr. Juares. Colonscopy done with biopsies performed. IV treatment with IV flagyl/ceftriaxone per Infectious Disease. Continue outpatient treatment with prescribed Asacol & Rowasa. Pt cleared for discharge and should follow up in our office in 1 week for continuity of care. Reviewed: CT abd/pelvis = Bilatera ovarian cysts, L ovary possible recent cyst rupture, minimal fluid in cul-de-sac Colonscopy = biopsy taken from descending, transverse and ascending colon - Date & Time of H&P Date of H&P: 12/21/17 Time of H&P: 09:40 Discharge Exam - Head Exam Head Exam: ATRAUMATIC, NORMOCEPHALIC - Eye Exam Eye Exam: EOMI, Normal appearance, PERRL Pupil Exam: NORMAL ACCOMODATION, PERRL - ENT Exam ENT Exam: Mucous Membranes Moist - Neck Exam Neck exam: Full Rom - Respiratory Exam Respiratory Exam: Clear to PA & Lateral, NORMAL BREATHING PATTERN, UNREMARKABLE - Cardiovascular Exam Cardiovascular Exam: +S1, +S2 - GI/Abdominal Exam GI & Abdominal Exam: Normal Bowel Sounds, Soft, Unremarkable - Back Exam Back exam: FULL ROM - Neurological Exam Neurological exam: Alert, CN II-XII Intact, Oriented x3 - Psychiatric Exam Psychiatric exam: Normal Affect, Normal Mood - Skin Skin Exam: Dry, Intact, Normal Color, Warm Discharge Plan - Follow Up Plan Condition: FAIR Disposition: HOME/ ROUTINE Instructions: Pneumococcal Vaccine for Adults (GEN), Influenza Vaccine (GEN), Regular Diet (DC), Ulcerative Colitis (GEN) Referrals: Mildred Joy MD [Primary Care Provider] - <Mildred Joy - Last Filed: 12/22/17 00:14> Provider - Provider Date of Admission: 12/20/17 21:42 Attending physician: Mildred Joy MD Primary care physician: Mildred Joy MD Hospital Course - Lab Results Lab Results: Most Recent Lab Values WBC 6.1 10^3/ul (4.5-11.0) 12/21/17 06:30 RBC 3.66 10^6/uL (3.5-6.1) 12/21/17 06:30 Hgb 10.4 g/dL (12.0-16.0) L 12/21/17 06:30 Hct 33.0 % (36.0-48.0) L 12/21/17 06:30 MCV 90.2 fl (80.0-105.0) 12/21/17 06:30 MCH 28.4 pg (25.0-35.0) 12/21/17 06:30 MCHC 31.5 g/dl (31.0-37.0) 12/21/17 06:30 RDW 12.3 % (11.5-14.5) 12/21/17 06:30 Plt Count 270 10^3/uL (120.0-450.0) 12/21/17 06:30 MPV 8.6 fl (7.0-11.0) 12/21/17 06:30 Gran % 55.9 % (50.0-68.0) 12/19/17 11:05 Lymph % (Auto) 24.5 % (22.0-35.0) 12/19/17 11:05 [place] % (Auto) 11.3 % (1.0-6.0) H 12/19/17 11:05 Eos % (Auto) 7.5 % (1.5-5.0) H 12/19/17 11:05 Baso % (Auto) 0.8 % (0.0-3.0) 12/19/17 11:05 Gran # 4.33 (1.4-6.5) 12/19/17 11:05 Lymph # (Auto) 1.9 (1.2-3.4) 12/19/17 11:05 [place] # (Auto) 0.9 (0.1-0.6) H 12/19/17 11:05 Eos # (Auto) 0.6 (0.0-0.7) 12/19/17 11:05 Baso # (Auto) 0.06 K/mm3 (0.0-2.0) 12/19/17 11:05 PT 12.0 SECONDS (9.4-12.5) 12/19/17 11:05 INR 1.04 (0.93-1.08) 12/19/17 11:05 APTT 22.7 Seconds (25.1-36.5) L 12/19/17 11:05 Sodium 141 mmol/L (132-148) 12/21/17 06:30 Potassium 3.6 mmol/L (3.6-5.0) 12/21/17 06:30 Chloride 110 mmol/L (98-107) H 12/21/17 06:30 Carbon Dioxide 22 mmol/L (21-33) 12/21/17 06:30 Anion Gap 13 (10-20) 12/21/17 06:30 BUN 3 mg/dL (7-21) L 12/21/17 06:30 Creatinine 0.7 mg/dl (0.7-1.2) 12/21/17 06:30 Est GFR ( Amer) > 60 12/21/17 06:30 Est GFR (Non-Af Amer) > 60 12/21/17 06:30 Random Glucose 85 mg/dL (70-110) 12/21/17 06:30 Hemoglobin A1c 5.2 % (4.2-6.5) 12/20/17 06:30 Calcium 8.3 mg/dL (8.4-10.5) L 12/21/17 06:30 Iron 56 ug/dL (45-180) 12/20/17 06:30 TIBC 333 ug/dL (265-497) 12/20/17 06:30 % Saturation 17 % (20-55) L 12/20/17 06:30 Total Bilirubin 0.8 mg/dL (0.2-1.3) 12/20/17 06:30 AST 20 U/L (14-36) 12/20/17 06:30 ALT 23 U/L (7-56) 12/20/17 06:30 Alkaline Phosphatase 75 U/L (38-126) 12/20/17 06:30 Lactate Dehydrogenase 422 U/L (333-699) 12/19/17 11:05 Total Creatine Kinase 56 U/L (35-230) 12/19/17 11:05 Troponin I < 0.01 ng/mL 12/19/17 11:05 Total Protein 7.0 g/dL (5.8-8.3) 12/20/17 06:30 Albumin 3.7 g/dL (3.0-4.8) 12/20/17 06:30 Globulin 3.4 gm/dL 12/20/17 06:30 Albumin/Globulin Ratio 1.1 (1.1-1.8) 12/20/17 06:30 Triglycerides 58 mg/dL (35-160) 12/20/17 06:30 Cholesterol 125 mg/dL (130-200) L 12/20/17 06:30 LDL Cholesterol Direct 61 mg/dL (0-129) 12/20/17 06:30 HDL Cholesterol 39 mg/dL (29-60) 12/20/17 06:30 Lipase 113 U/L (23-300) 12/19/17 11:05 Vitamin B12 498 pg/mL (239-931) 12/20/17 06:30 Folate 7.0 ng/mL 12/20/17 06:30 TSH 3rd Generation 5.44 mIU/mL (0.46-4.68) H 12/20/17 06:30 Urine Color Yellow (YELLOW) 12/19/17 11:05 Urine Appearance Clear (CLEAR) 12/19/17 11:05 Urine pH 6.5 (4.7-8.0) 12/19/17 11:05 Ur Specific [place] 1.010 (1.005-1.035) 12/19/17 11:05 Urine Protein Negative mg/dL (<30 mg/dL) 12/19/17 11:05 Urine Glucose (UA) Negative mg/dL (NEGATIVE) 12/19/17 11:05 Urine Ketones Negative mg/dL (NEGATIVE) 12/19/17 11:05 Urine Blood Negative (NEGATIVE) 12/19/17 11:05 Urine Nitrate Negative (NEGATIVE) 12/19/17 11:05 Urine Bilirubin Negative (NEGATIVE) 12/19/17 11:05 Urine Urobilinogen 0.2 E.U./dL (<1 E.U./dL) 12/19/17 11:05 Ur Leukocyte Esterase Negative Annabel/uL (NEGATIVE) 12/19/17 11:05 Blood Type A POSITIVE 12/19/17 10:50 Blood Type Confirm A POSITIVE 12/19/17 12:45 Antibody Screen Negative 12/19/17 10:50 BBK History Checked No verified bt 12/19/17 10:50 Discharge Exam - Additional Findings Additional findings: 22 yr female w/ history of ulcerative colitis, hemorrhoids, and anemia. Pt was admitted in [facility] an episode of bloody stools. Pt was followed by GI Dr. Juares. Colonscopy done with biopsies performed. IV treatment with IV flagyl/ceftriaxone per Infectious Disease. Continue outpatient treatment with prescribed Asacol & Rowasa. Pt cleared for discharge and should follow up in our office in 1 week for continuity of care. pt is seen and examined at bed side , looking comfortable , agreed all above , will f/u
--- NOTE | 2017-12-21 17:04 | CP.PCM.CON ---
History of Present Illness - History of Present Illness History of Present Illness: 22 year old female with PMH of ulcerative colitis was [place] [facility] of bloody stools and abdominal discomfort. She has no nausea or vomiting , no chest pain, no SOB, no headache or dizziness, no dysuria, no sore throat, no cough or colds. The patient underwent colonoscopy which still showed the ulcers and inflammation from the rectum to the hepatic flexure. She had not been on ulcerative colitis treatment for the past 6 months. Prior to admission she had subjective fever and chills. Infectious Diseases consult is requested to further evaluate and manage. Past Patient History - Past Social History Smoking Status: Never Smoked - CARDIAC Hx Cardiac Disorders: No - PULMONARY Hx Respiratory Disorders: No - NEUROLOGICAL Hx Neurological Disorder: No - HEENT Hx HEENT Problems: No - RENAL Hx Chronic Kidney Disease: No - ENDOCRINE/METABOLIC Hx Endocrine Disorders: No - HEMATOLOGICAL/ONCOLOGICAL Hx Blood Disorders: Yes Hx Anemia: Yes - INTEGUMENTARY Hx Dermatological Problems: No - MUSCULOSKELETAL/RHEUMATOLOGICAL Hx Musculoskeletal Disorders: No Hx Falls: No - GASTROINTESTINAL Hx Gastrointestinal Disorders: Yes (HEMORRHOIDS) Other/Comment: COLITIS - GENITOURINARY/GYNECOLOGICAL Hx Genitourinary Disorders: No (OVARIAN CYSTS) - PSYCHIATRIC Hx Psychophysiologic Disorder: No - SURGICAL HISTORY Hx Surgeries: No Meds Allergies/Adverse Reactions: Allergies Allergy/AdvReac Type Severity Reaction Status Date / Time codeine AdvReac VOMITING Verified 12/19/17 17:07 - Medications Medications: Current Medications Hydromorphone HCl (Dilaudid) 0.5 mg IVP Q4H PRN PRN Reason: Pain, Mild (1-3) Sodium Chloride (Sodium Chloride 0.9%) 1,000 mls @ 150 mls/hr IV .Q6H40M [facility] Last Admin: 12/19/17 17:13 Dose: 150 mls/hr Ondansetron HCl (Zofran Inj) 4 mg IVP Q4H PRN PRN Reason: Nausea/Vomiting Pantoprazole Sodium (Protonix Inj) 40 mg IVP DAILY [facility] Results - Vital Signs Recent Vital Signs: Last Vital Signs Temp 98.4 F 12/19/17 18:04 Pulse 70 12/19/17 18:04 Resp 17 12/19/17 18:04 BP 127/65 12/19/17 18:04 Pulse Ox 99 12/19/17 16:02 - Labs Result Diagrams: 12/21/17 06:30 12/21/17 06:30
== END 2017-12-21 15:24 | disposition home or self-care (01) | DRG 387 ==
LOC: ED 09:09 → ERH 14:32 → INTOOBSV 14:47 → UNDOADMOB 14:47 → ERH 14:47 → 5RNO 16:31 → ERH 16:31 → 5RNO 16:31 → ERH 16:31 → OBSVTOIN 12-20 21:42
PROVIDERS: ADMIT Internal Medicine; ATTEND Internal Medicine
PROC: 0DBL8ZX Excision of Transverse Colon, Via Natural or Artificial Opening Endoscopic, Diagnostic (ICD-10-PCS; 2017-12-20)
PROC: 0DBM8ZX Excision of Descending Colon, Via Natural or Artificial Opening Endoscopic, Diagnostic (ICD-10-PCS; 2017-12-20)
PROC: 0DBK8ZX Excision of Ascending Colon, Via Natural or Artificial Opening Endoscopic, Diagnostic (ICD-10-PCS; principal; 2017-12-20 12:00)
DX: K51.90 Ulcerative colitis, unspecified, without complications (principal); D50.9 Iron deficiency anemia, unspecified; N83.201 Unspecified ovarian cyst, right side; N83.202 Unspecified ovarian cyst, left side; E03.9 Hypothyroidism, unspecified; K64.9 Unspecified hemorrhoids; Z86.19 Personal history of other infectious and parasitic diseases

== ENCOUNTER 2017-12-24 13:32 | Emergency (ER) | payer OTHER ==
[2017-12-24 13:33] VITALS: BMI 20.7
[2017-12-24] MEDS ORDERED: Naproxen 550 mg Tab PO STA (15:40)
--- NOTE | 2017-12-24 15:44 | ED PDOC ---
Arrival/HPI - General Chief Complaint: Upper Extremity Problem/Injury Time Seen by Provider: 12/24/17 15:39 Historian: Patient - History of Present Illness Narrative History of Present Illness (Text): 12/24/17 15:42 This 22 yo female presents to this Emergency department complaining of right arm pain x 3 days. Patient stated she was hospitalized for a few days, and discharge 3 days. Patient stated upon discharge from her last hospitalization, the area where IV was placed has been increasingly getting more painful. Patient denies other somatic complains. Time/Duration: Other (see hpi) Quality: Aching Context: Other (last hopsital admission) Past Medical History - Provider Review Nursing Documentation Reviewed: Yes - Infectious Disease Hx of Infectious Diseases: None - Cardiac Hx Cardiac Disorders: No - Pulmonary Hx Respiratory Disorders: No - Neurological Hx Neurological Disorder: No - HEENT Hx HEENT Disorder: No - Renal Hx Renal Disorder: No - Endocrine/Metabolic Hx Endocrine Disorders: No - Hematological/Oncological Hx Blood Disorders: Yes Hx Anemia: Yes - Integumentary Hx Dermatological Disorder: No - Musculoskeletal/Rheumatological Hx Musculoskeletal Disorders: No Hx Falls: No - Gastrointestinal Hx Gastrointestinal Disorders: Yes (HEMORRHOIDS) Other/Comment: ulcerative colitis - Genitourinary/Gynecological Hx Genitourinary Disorders: No (OVARIAN CYSTS) - Psychiatric Hx Psychophysiologic Disorder: No Hx Substance Use: No - Anesthesia Hx Anesthesia: Yes Hx Anesthesia Reactions: No Hx Malignant Hyperthermia: No Family/Social History - Physician Review Nursing Documentation Reviewed: Yes Family/Social History: Other (noncontributory) Smoking Status: Never Smoked Hx Alcohol Use: Yes Hx Substance Use: No Allergies/Home Meds Allergies/Adverse Reactions: Allergies codeine Adverse Reaction (Verified 12/19/17 17:07) VOMITING Review of Systems - Review of Systems Constitutional: Normal. absent: Fatigue, Weight Change, Fevers Eyes: Normal ENT: Normal Respiratory: Normal. absent: SOB, Cough Cardiovascular: Normal Gastrointestinal: Normal. absent: Abdominal Pain, Nausea, Vomiting Genitourinary Female: Normal Musculoskeletal: Other (see hpi) Skin: Normal. absent: Rash, Pruritis, Skin Lesions, Laceration, Abscess, Ulcer , Cellulitis Neurological: Normal Endocrine: Normal Hemo/Lymphatic: Normal Psychiatric: Normal Physical Exam Vital Signs Temp Pulse Resp BP Pulse Ox 12/24/17 17:30 80 18 102/76 99 12/24/17 15:50 98.2 F 86 18 100/66 94 L Temperature: Afebrile Blood Pressure: Normal Pulse: Regular Respiratory Rate: Normal Appearance: Positive for: Well-Appearing, Non-Toxic, Comfortable Pain Distress: None Mental Status: Positive for: Alert and Oriented X 3 - Systems Exam Head: Present: Atraumatic, Normocephalic Pupils: Present: PERRL Extroacular Muscles: Present: EOMI Conjunctiva: Present: Normal Mouth: Present: Moist Mucous Membranes Neck: Present: Normal Range of Motion Respiratory/Chest: Present: Clear to Auscultation, Good Air Exchange. No: Respiratory Distress, Accessory Muscle Use Back: Present: Normal Inspection Upper Extremity: Present: Normal Inspection, NORMAL PULSES, Tenderness (Mild tenderness over rght anticubital area of right elbow. No erythema or skin abscess. No streaking erythema), Neurovascularly Intact, Capillary Refill < 2s , Other (no induration, corlike mass, erythema, or skin rash). No: Cyanosis, Edema, Normal ROM, Swelling, Erythema Lower Extremity: Present: Normal Inspection, Normal ROM. No: Edema Neurological: Present: GCS=15, CN II-XII Intact, Speech Normal Skin: Present: Warm, Dry, Normal Color. No: Rashes Psychiatric: Present: Alert, Oriented x 3, Normal Insight, Normal Concentration Medical Decision Making ED Course and Treatment: 12/24/17 17:21 Re-evaluation. Patient feels better. Discussed results and plan with patient who expresses understanding. All questions answered and there is agreement with the plan to discharge home with instructions. Patient stable for discharge. Return if symptoms persist or worsen. Patient was recommended to apply warmth compress, and to take NSAIDs till symptoms improve. She was also recommended that she will need a repeat ultrasound of right upper extremity if symptoms persist for more than 7 days. To return to emergency if symptoms worsen. Re-evaluation Time: 17:21 Reassessment Condition: Re-examined, Improved - RAD Interpretation Narrative RAD Interpretations (Text): 12/24/17 17:05 PROCEDURE: Radiographs of the right elbow. HISTORY: pain r/o FB COMPARISON: No prior. FINDINGS: BONES: Normal. No fracture. JOINTS: Normal. No osteoarthritis. SOFT TISSUES: Normal. JOINT EFFUSION: None. OTHER FINDINGS: No evidence of radiopaque foreign body IMPRESSION: Unremarkable radiographs of the right elbow. Upper extremity Venous Doppler: no DVT as per US Radiology Orders: 12/24/17 15:40 DUPLEX UPPER EXTRM VEIN RIGHT [US] Stat 12/24/17 15:41 ELBOW RIGHT 3 VIEWS ROUTINE [RAD] Stat - Medication Orders Current Medication Orders: Discontinued Medications Naproxen (Anaprox Ds) 550 mg PO STAT STA Stop: 12/24/17 15:41 Last Admin: 12/24/17 15:47 Dose: 550 mg Disposition/Present on Arrival - Present on Arrival Any Indicators Present on Arrival: No History of DVT/PE: No History of Uncontrolled Diabetes: No Urinary Catheter: No History of Decub. Ulcer: No History Surgical Site Infection Following: None - Disposition Have Diagnosis and Disposition been Completed?: Yes Diagnosis: Phlebitis Disposition: HOME/ ROUTINE Disposition Time: 17:23 Patient Plan: Discharge Condition: GOOD Discharge Instructions (ExitCare): Superficial Thrombophlebitis (ED) Additional Instructions: Call private doctor for follow up visit in 1-2 days. Take medication as instructed with food. Use warmth compress for 10 minutes 4 times a day for 2-4 days. Return to emergency if symptoms worsen. You will need a repeat ultrasound of your arm in 7 days if symptoms persist. Prescriptions: Famotidine [Pepcid] 40 mg PO DAILY #10 tablet Naproxen 500 mg PO BID PRN #12 tab PRN Reason: Pain, Severe (8-10) Referrals: Angelo Freeman DO [Primary Care Provider] - Follow up with primary Forms: [employer] (Romanian)
[2017-12-24 15:51] VITALS: RESP 18; TEMP 98.2
--- NOTE | 2017-12-24 16:59 | RAD ---
PROCEDURE: Radiographs of the right elbow. HISTORY: pain r/o FB COMPARISON: No prior. FINDINGS: BONES: Normal. No fracture. JOINTS: Normal. No osteoarthritis. SOFT TISSUES: Normal. JOINT EFFUSION: None. OTHER FINDINGS: No evidence of radiopaque foreign body IMPRESSION: Unremarkable radiographs of the right elbow.
--- NOTE | 2017-12-24 17:21 | US ---
PROCEDURE: Right upper extremity venous US CLINICAL HISTORY: Arm pain and swelling Evaluate for deep venous thrombosis. PHYSICIAN(S): Amauri Flores M.D FINDINGS: The visualized rightinternal jugular vein is sonographically normal and compressible. No evidence of obstruction or thrombus is seen. The visualized segments of the right subclavian vein are patent with normal waveforms. No sonographic evidence of obstruction or thrombosis is seen. The visualized deep venous system of the proximal right upper extremity is sonographically normal and compressible. IMPRESSION: 1. No sonographic evidence for deep venous thrombosis in the visualized segments of the right upper extremity.
[2017-12-24 17:30] VITALS: BP 102/76; PULSE 80; O2SAT 99
== END 2017-12-24 17:30 | disposition home or self-care (01) ==
LOC: ED 13:32
DX: I80.8 Phlebitis and thrombophlebitis of other sites (principal)